=== PATIENT | male | born 1975 | race Caucasian/White ===

== ENCOUNTER 2016-11-21 19:12 | Emergency (ER) | payer OTHER ==
[~2016-11-21 19:12] MED LIST: FLEXERIL10 MG PO; IMITREX100 MG; LISINOPRIL10 MG PO; LITHIUM CARBON300 MG PO; NASONEX0.05 MG/Ac; NOR10T PO; VENTOLIN H0.09 MG/A1; XAN1 PO
[2016-11-21 21:26] VITALS: BP 144/88
== END 2016-11-21 21:35 | disposition home or self-care (01) ==
LOC: ED 19:12
DX: N20.0 Calculus of kidney (principal); F17.210 Nicotine dependence, cigarettes, uncomplicated; J45.909 Unspecified asthma, uncomplicated; Z79.899 Other long term (current) drug therapy; Z79.891 Long term (current) use of opiate analgesic
CPT/HCPCS: J1885